=== PATIENT | male | born 1970 | race Caucasian/White ===

== ENCOUNTER → 2022-10-02 | Outpatient (CLI) | payer BC ==
[~2022-10-02] MED LIST: ASPIRIN 32325 MG/TAB PEG; COREG12.5 MG PEG; FREESTYLE PREC1 EAC5 MC; GLUCOSE TEST ST1 DEV MC; HYTRIN 2MG CAPSU2 MG PO; LANCETS MC; LANTUS SOLOS100 U/ML SQ; LEVEMIR SQ; LIPITOR 80MG80 MG PEG; MELATONIN3 M1 PEG; NORVASC 10MG10 MG PEG; NOVLOG SQ; NOVOLOG FLEX100 U/ML SQ; PRINIVIL20 MG PEG; PROTONIX PEG; TRUE COMFORT P1 EAC1 MC; ZOLOFT 25MG25 MG PEG
== END ==
LOC: MHCPAIN 10:30
DX: I69.351 Hemiplegia and hemiparesis following cerebral infarction affecting right dominant side (principal); R13.10 Dysphagia, unspecified
CPT/HCPCS: G0463